=== PATIENT | female | born 1990 | race Caucasian/White ===

== ENCOUNTER 2019-03-05 23:44 | Emergency (ER) | payer OTHER ==
[~2019-03-05] VITALS: Ht 152.4 cm; Wt 49.4 kg
[2019-03-05] MEDS ORDERED: PRENATA CHEWAB1 EACH (23:50)
[2019-03-06] MEDS ORDERED: ZOFRAN4 MG PO (05:40)
[2019-03-06] MEDS ORDERED: PEPCID40 MG PO (05:40)
== END 2019-03-06 05:48 | disposition home or self-care (01) ==
LOC: ER 23:44
DX: K29.70 Gastritis, unspecified, without bleeding (principal)

== ENCOUNTER 2019-10-05 12:54 | Emergency (ER) | payer OTHER ==
[~2019-10-05] VITALS: Ht 152.4 cm; Wt 58.1 kg
[~2019-10-05 12:54] MED LIST: PEPCID40 MG PO; PRENATA CHEWAB1 EACH; ZOFRAN4 MG PO
== END 2019-10-05 17:12 | disposition home or self-care (01) ==
LOC: ER 12:54
DX: J11.1 Influenza due to unidentified influenza virus with other respiratory manifestations (principal)

== ENCOUNTER 2019-10-09 20:24 | Outpatient (CLI) | payer OTHER | END 2019-10-10 16:32 | disposition home or self-care (01) | LOC: OBS/DEL 20:24 | DX: O76 Abnormality in fetal heart rate and rhythm complicating labor and delivery (principal) ==

== ENCOUNTER 2019-10-20 23:48 | Inpatient (IN) | payer OTHER ==
[~2019-10-20] VITALS: Ht 152.4 cm; Wt 58.5 kg
== END 2019-10-23 12:29 | disposition home or self-care (01) | DRG 807 ==
LOC: LDR 23:48 → OB/GYN 23:48
PROVIDERS: ADMIT Specialist
PROC: 10E0XZZ Delivery of Products of Conception, External Approach (ICD-10-PCS; principal; 2019-10-20)
PROC: 10907ZC Drainage of Amniotic Fluid, Therapeutic from Products of Conception, Via Natural or Artificial Opening (ICD-10-PCS; 2019-10-20)
PROC: 0W8NXZZ Division of Female Perineum, External Approach (ICD-10-PCS; 2019-10-20)
PROC: 4A1HXCZ Monitoring of Products of Conception, Cardiac Rate, External Approach (ICD-10-PCS; 2019-10-20)
DX: O80 Encounter for full-term uncomplicated delivery (principal); Z37.0 Single live birth; Z3A.38 38 weeks gestation of pregnancy